=== PATIENT | female | born 1960 | race African-American/Black ===

== ENCOUNTER 2020-01-05 02:13 | Emergency (ER) | payer OTHER, BC ==
[2020-01-05 02:25] VITALS: TEMP 98; BMI 31.6
--- NOTE | 2020-01-05 02:26 | PDOC ---
History of Present Illness - General Chief Complaint: Injury Stated Complaint: BACK PAIN Time Seen by Provider: 01/05/20 02:25 Exam Limitations: Intubated - History of Present Illness Initial Comments: 01/05/20 02:29 HPI 59 y/o F hx of asthma presents to the ED with right sided back pain for 2 weeks. pt was seen at this ED 2 days ago for the same complaint. Pt reports she has felt minimal relief since that discharge. She reports fallin on her right knee after getting out of bed a few hours ago, worsening her right sided back pain. Pain is constant 10/10 pain, radiating down the back of her right leg. pain was triggered 2 weeks ago after lifting heavy object. She denies any bowel/bladder symptoms. loss of sensation, numbness/tingling, fevers, chills, abdominal pain PMHx: as noted above ROS: as noted SHx: Denies Etoh, IVDA, tobacco use Allergies: NKDA ROS: GENERAL/CONSTITUTIONAL: No fever or chills. No weakness. HEAD, EYES, EARS, NOSE AND THROAT: No change in vision. No ear pain or disc harge. No sore throat. CARDIOVASCULAR: No chest pain or shortness of breath RESPIRATORY: No cough, wheezing, or hemoptysis. GASTROINTESTINAL: No nausea, vomiting, diarrhea or constipation. GENITOURINARY: No dysuria, frequency, or change in urination. MUSCULOSKELETAL: No joint or muscle swelling or pain. No neck or back pain. SKIN: No rash NEUROLOGIC: No headache, vertigo, loss of consciousness, or change in strength/sensation. ENDOCRINE: No increased thirst. No abnormal weight change HEMATOLOGIC/LYMPHATIC: No anemia, easy bleeding, or history of blood clots. ALLERGIC/IMMUNOLOGIC: No hives or skin allergy. PE: GENERAL: Awake, alert, and fully oriented, in no acute distress HEAD: No signs of trauma, normocephalic, atraumatic EYES: PERRLA, EOMI, sclera anicteric, conjunctiva clear ENT: Auricles normal inspection, hearing grossly normal, nares patent, oropharynx clear without exudates. Moist mucosa NECK: Normal ROM, supple, no lymphadenopathy, JVD, or masses LUNGS: No distress, speaks full sentences, clear to auscultation bilaterally HEART: Regular rate and rhythm, normal S1 and S2, no murmurs, rubs or gallops, peripheral pulses normal and equal bilaterally. ABDOMEN: Soft, nontender, normoactive bowel sounds. No guarding, no rebound. No masses EXTREMITIES : Normal inspection, Normal range of motion, no edema. No clubbing or cyanosis MSK: no midline tenderness, ttp lower right back and buttocks RECTAL: no saddle anesthesia. normal rectal tone. NEUROLOGICAL: Cranial nerves II through XII grossly intact. Normal speech, no focal sensorimotor deficits SKIN: Warm, Dry, normal turgor, no rashes or lesions noted MDM DDx including but not limited to: sciatica, MSK strain , Workup: lumbar spine ct, toradol IM TX: Past History - Medical History Allergies/Adverse Reactions: Allergies Allergy/AdvReac Type Severity Reaction Status Date / Time No Known Allergies Allergy Verified 01/05/20 02:25 Home Medications: Ambulatory Orders Diazepam [Valium] 5 mg PO Q8H PRN #10 tablet MDD 3 01/05/20 Naproxen 500 mg PO BID PRN #60 tablet MDD 2 01/05/20 Anemia: Yes (Mild, intermittent) COPD: No - Psycho-Social/Smoking History Smoking History: Never smoked Have you smoked in the past 12 months: No Information on smoking cessation initiated: No - Substance Abuse Hx (Audit-C & DAST Scrn) How often the patient has a drink containing alcohol: Never Score: In Men: 4 or > Positive; In Women: 3 or > Positive: 0 Screen Result (Pos requires Nsg. Audit-10AR): Negative In the last yr the pt used illegal drug/Rx for NonMed reason: No Score: Yes response is considered Positive: 0 Screen Result (Positive result requires Nsg. DAST-10): Negative *Physical Exam - Vital Signs Last Vital Signs Temp Pulse Resp BP Pulse Ox 98 F 83 17 142/96 98 01/05/20 02:21 01/05/20 02:21 01/05/20 02:21 01/05/20 02:21 01/05/20 02:21 Discharge - Discharge Information Problems reviewed: Yes Clinical Impression/Diagnosis: Right low back pain Condition: Improved Disposition: HOME - Additional Discharge Information Prescriptions: Naproxen 500 mg PO BID PRN #60 tablet MDD 2 PRN Reason: Pain Diazepam [Valium] 5 mg PO Q8H PRN #10 tablet MDD 3 PRN Reason: Muscle Spasms - Follow up/Referral Referrals: Erin Baldwin [Primary Care Provider] - - Patient Discharge Instructions Patient Printed Discharge Instructions: DI for Low Back Pain Additional Instructions: Please follow up with your Primary Care Doctor within 48-72 hours - call for an appointment. Ambulate as tolerated and no heavy lifting. Take naproxen and valium that have been prescribed to you.do not drive or make any important decisions while on this medication for it can make you drowsy. If you experience any worsening pain, swelling, numbness, weakness please return to ER - Post Discharge Activity Work/Back to School Note: Back to Work
[2020-01-05] MEDS ORDERED: KETOROLAC TROMETHAMINE 15 MG/ML VIAL IM ONE (02:55)
[2020-01-05] MEDS ORDERED: KETOROLAC TROMETHAMINE 15 MG/ML VIAL ONE (03:24)
--- NOTE | 2020-01-05 03:43 | PDOC ---
Attending Attestation - Resident Resident Name: Regulo Malik - ED Attending Attestation I have performed the following: I have examined & evaluated the patient, The case was reviewed & discussed with the resident, I agree w/resident's findings & plan, Exceptions are as noted - HPI HPI: 01/05/20 03:34 51-year-old female history of asthma here today complaining of low back pain. 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 Today she was doing something and suddenly she said she had severe pain radiating down her right leg which caused her to nearly fall denies any bowel or bladder incontinence no fevers no chills no other known trauma no previous back surgery has not had any prior back imaging has been taking Flexeril and Tylenol for her pain states it is not relieved - Physicial Exam PE: 01/05/20 03:43 Awake alert no acute distress lungs are clear bilaterally heart is regular no murmurs rubs or gallops abdomen is soft nontender there is no midline cervical thoracic or lumbar spinal tenderness. She does have paraspinal tenderness in the lumbosacral region on the right neurological testing she has 5 out of 5 in hip flexion extension knee flexion extension dorsiflexion plantarflexion sensation is intact through bilateral bilateral lower extremities - Medical Decision Making 01/05/20 03:44 51-year-old female history of asthma back surgery here today for a second evaluation regarding her back pain. Patient states she has been taking Flexeril with no relief does not tolerate Motrin due to upset stomach on my exam she is neurologically intact his symptoms consistent with sciatica down the right leg will treat with Toradol and Valium p.o. also instructed she should follow-up with her outpatient MRI states she already has a prescription in addition she requests referral for physical therapy from her primary care doctor. We will order imaging with a CT lumbosacral spine today to rule out any other pathology Discharge - Discharge Information Problems reviewed: Yes Clinical Impression/Diagnosis: Right low back pain Condition: Improved Disposition: HOME - Additional Discharge Information Prescriptions: Naproxen 500 mg PO BID PRN #60 tablet MDD 2 PRN Reason: Pain Diazepam [Valium] 5 mg PO Q8H PRN #10 tablet MDD 3 PRN Reason: Muscle Spasms - Follow up/Referral Referrals: Erin Baldwin [Primary Care Provider] - - Patient Discharge Instructions Patient Printed Discharge Instructions: DI for Low Back Pain Additional Instructions: Please follow up with your Primary Care Doctor within 48-72 hours - call for an appointment. Ambulate as tolerated and no heavy lifting. Take naproxen and valium that have been prescribed to you.do not drive or make any important decisions while on this medication for it can make you drowsy. If you experience any worsening pain, swelling, numbness, weakness please return to ER - Post Discharge Activity Work/Back to School Note: Back to Work
[2020-01-05 05:23] VITALS: BP 150/97; PULSE 79
== END 2020-01-05 05:26 | disposition home or self-care (01) ==
LOC: JER 02:13
PROC: 3E0233Z Introduction of Anti-inflammatory into Muscle, Percutaneous Approach (ICD-10-PCS; principal; 2020-01-05)
DX: M54.5 Low back pain (principal)
CPT/HCPCS: 72131-TC; 99284-25

== ENCOUNTER 2020-07-16 08:41 | Inpatient (IN) | payer BC, OTHER ==
[2020-07-16] MEDS ORDERED: EPINEPHrine 1:1,000 0.3 MG/0.3 ML SYR IM ONE (08:43)
[2020-07-16] MEDS ORDERED: EPINEPHrine 1:1,000 1 MG/1 ML - 30ML VIAL (INJECTION) SQ ONE (08:44)
[2020-07-16] MEDS: ALBUTEROL SO4 2.5/IPRATROPIUM 0.5 INH SOL 3 ML VIAL.NEB. NEB SCH ×4 (08:57→09:35)
[2020-07-16 09:38] LABS: BASO % 0.4 % (0-2.0); EOS % 0.7 % (0-4.5); HEMATOCRIT 46.8 % (32.4-45.2); HEMOGLOBIN 14.8 GM/dL (10.7-15.3); LYMPH % 16.3 % (8-40); MCH 26.9 pg (25.7-33.7); MCHC 31.6 g/dl (32.0-36.0); MEAN CELL VOLUME 85.2 fl (80-96); MONO % 6.1 % (3.8-10.2); NEUT % 76.5 % (42.8-82.8); PLATELET COUNT 278 K/MM3 (134-434); RDW 15.1 % (11.6-15.6)
[2020-07-16 09:55] LABS: POTASSIUM 3.5 mmol/L (3.5-5.1)
[2020-07-16 10:00] LABS: ALBUMIN 3.8 g/dl (3.4-5.0)
[2020-07-16 10:01] LABS: CALCIUM 9.2 mg/dL (8.5-10.1)
[2020-07-16 10:02] LABS: MAGNESIUM 2.7 mg/dL (1.8-2.4)
[2020-07-16 10:04] LABS: BILIRUBIN,TOTAL 0.7 mg/dL (0.2-1); CREATININE 0.7 mg/dL (0.55-1.3); TOT PROT 7.5 g/dl (6.4-8.2)
[2020-07-16] MEDS ORDERED: ALBUTEROL SO4 0.083% IH SOL 2.5 MG/3 ML VIAL.NEB. NEB ONE ×3 (10:06→21:11)
[2020-07-16] MEDS ORDERED: ALBUTEROL SO4 0.5 % INH SOLN 2.5 MG/0.5 ML VIAL.NEB. NEB ONE (10:07)
[2020-07-16] MEDS ORDERED: ALBUTEROL SO4 0.083% IH SOL 2.5 MG/3 ML VIAL.NEB. NEB PRN (13:17)
[2020-07-16] MEDS ORDERED: ACETAMINOPHEN 325 MG TABLET (FP) PO PRN (13:17)
[2020-07-16] MEDS ORDERED: AZITHROMYCIN 500 MG TABLET PO SCH (13:30)
[2020-07-16] MEDS ORDERED: AZITHROMYCIN 250 MG TABLET ONE ×2 (13:52→14:00)
[2020-07-16] MEDS ORDERED: CEFTRIAXONE 1 GM/50 ML BAG ONE (13:52)
[2020-07-16] MEDS: CEFTRIAXONE 1 GM in DEXTROSE 5%-WATER - 50 ML IVPB SCH (13:58)
[2020-07-16] MEDS: ALBUTEROL SO4 0.083% IH SOL 2.5 MG/3 ML VIAL.NEB. NEB SCH ×3 (14:21→21:31)
[2020-07-16] MEDS: BUDESONIDE/FORMETEROL FUMARATE 160/4.5 mcg INHALER IH SCH ×2 (14:43→21:31)
[2020-07-16] MEDS ORDERED: methylPREDNISolone NA SUCC 40 MG/1 ML VIAL ONE ×2 (15:42→21:12)
[2020-07-16] MEDS: methylPREDNISolone NA SUCC 40 MG/1 ML VIAL IVPUSH SCH ×2 (16:00→21:31)
[2020-07-16] MEDS: INSULIN SLIDING SCALE (NOVOLOG) 1 VIAL SQ SCH ×2 (18:05→21:31)
[2020-07-16] MEDS ORDERED: MONTELUKAST NA 10 MG TABLET ONE (21:11)
[2020-07-16] MEDS ORDERED: HEPARIN NA (PORCINE) 5,000 UNITS/ML 1ML VIAL ONE (21:11)
[2020-07-16] MEDS: MONTELUKAST NA 10 MG TABLET PO SCH (21:31)
[2020-07-16] MEDS: HEPARIN NA (PORCINE) 5,000 UNITS/ML 1ML VIAL SQ SCH (21:31)
[2020-07-17 00:38] VITALS: BMI 29.4
[2020-07-17] MEDS: methylPREDNISolone NA SUCC 40 MG/1 ML VIAL IVPUSH SCH ×4 (02:52→22:05)
[2020-07-17] MEDS: ALBUTEROL SO4 0.083% IH SOL 2.5 MG/3 ML VIAL.NEB. NEB SCH ×6 (03:03→19:45)
[2020-07-17] MEDS: INSULIN SLIDING SCALE (NOVOLOG) 1 VIAL SQ SCH ×4 (06:32→22:15)
[2020-07-17] MEDS ORDERED: DEXTROSE 5%-WATER - 50 ML IVPB ONE (08:55)
[2020-07-17] MEDS ORDERED: cefTRIAXone SODIUM 1 GM VIAL ONE (08:55)
[2020-07-17] MEDS ORDERED: PT OWN MED DRAWER 7, Y5N ONE (08:56)
[2020-07-17] MEDS: CEFTRIAXONE 1 GM in DEXTROSE 5%-WATER - 50 ML IVPB SCH (09:00)
[2020-07-17 09:07] LABS: BASO % 0.1 % (0-2.0); HEMATOCRIT 41.2 % (32.4-45.2); HEMOGLOBIN 13.4 GM/dL (10.7-15.3); LYMPH % 6.8 % (8-40); MCH 27.4 pg (25.7-33.7); MCHC 32.5 g/dl (32.0-36.0); MEAN CELL VOLUME 84.5 fl (80-96); MONO % 2.5 % (3.8-10.2); NEUT % 90.6 % (42.8-82.8); PLATELET COUNT 251 K/MM3 (134-434); RBC 4.88 M/mm3 (3.60-5.2); RDW 15.2 % (11.6-15.6); WHITE BLOOD COUNT 11.3 K/mm3 (4.0-10.0)
[2020-07-17] MEDS: HEPARIN NA (PORCINE) 5,000 UNITS/ML 1ML VIAL SQ SCH ×2 (09:08→22:05)
[2020-07-17] MEDS: AZITHROMYCIN 250 MG TABLET PO SCH (09:11)
[2020-07-17] MEDS: BUDESONIDE/FORMETEROL FUMARATE 160/4.5 mcg INHALER IH SCH ×2 (09:12→22:14)
[2020-07-17 09:51] LABS: POTASSIUM 4.2 mmol/L (3.5-5.1)
[2020-07-17 10:03] LABS: CALCIUM 9.5 mg/dL (8.5-10.1)
[2020-07-17 10:04] LABS: ALBUMIN 3.5 g/dl (3.4-5.0); BLOOD UREA NITROGEN 11.7 mg/dL (7-18)
[2020-07-17 10:07] LABS: CREATININE 0.6 mg/dL (0.55-1.3)
[2020-07-17 10:08] LABS: BILIRUBIN,TOTAL 0.7 mg/dL (0.2-1)
[2020-07-17] MEDS ORDERED: INSULIN (NOVOLOG) ASPART 100 UNITS/ML 10ML VIAL ONE (10:48)
[2020-07-17] MEDS: MONTELUKAST NA 10 MG TABLET PO SCH (22:05)
[2020-07-18] MEDS: ALBUTEROL SO4 0.083% IH SOL 2.5 MG/3 ML VIAL.NEB. NEB SCH ×6 (00:11→20:45)
[2020-07-18] MEDS: methylPREDNISolone NA SUCC 40 MG/1 ML VIAL IVPUSH SCH ×4 (04:17→17:08)
[2020-07-18] MEDS: INSULIN SLIDING SCALE (NOVOLOG) 1 VIAL SQ SCH ×4 (07:04→21:18)
[2020-07-18] MEDS ORDERED: DEXTROSE 5%-WATER - 50 ML IVPB ONE (09:15)
[2020-07-18] MEDS ORDERED: cefTRIAXone SODIUM 1 GM VIAL ONE (09:15)
[2020-07-18] MEDS ORDERED: PT OWN MED DRAWER 7, Y5N ONE (09:15)
[2020-07-18] MEDS: CEFTRIAXONE 1 GM in DEXTROSE 5%-WATER - 50 ML IVPB SCH (09:21)
[2020-07-18] MEDS: HEPARIN NA (PORCINE) 5,000 UNITS/ML 1ML VIAL SQ SCH ×2 (09:22→21:19)
[2020-07-18] MEDS: BUDESONIDE/FORMETEROL FUMARATE 160/4.5 mcg INHALER IH SCH ×2 (09:23→21:20)
[2020-07-18] MEDS: AZITHROMYCIN 250 MG TABLET PO SCH (09:24)
[2020-07-18] MEDS ORDERED: INSULIN (NOVOLOG) ASPART 100 UNITS/ML 10ML VIAL ONE ×2 (11:07→16:12)
[2020-07-18] MEDS: MONTELUKAST NA 10 MG TABLET PO SCH (21:18)
[2020-07-19] MEDS: ALBUTEROL SO4 0.083% IH SOL 2.5 MG/3 ML VIAL.NEB. NEB SCH ×4 (00:20→11:29)
[2020-07-19 06:50] VITALS: BP 123/52; PULSE 62; TEMP 97.7
[2020-07-19] MEDS: INSULIN SLIDING SCALE (NOVOLOG) 1 VIAL SQ SCH ×2 (07:08→11:41)
[2020-07-19] MEDS ORDERED: DEXTROSE 5%-WATER - 50 ML IVPB ONE (08:53)
[2020-07-19] MEDS ORDERED: cefTRIAXone SODIUM 1 GM VIAL ONE (08:53)
[2020-07-19] MEDS: BUDESONIDE/FORMETEROL FUMARATE 160/4.5 mcg INHALER IH SCH (09:18)
[2020-07-19] MEDS: CEFTRIAXONE 1 GM in DEXTROSE 5%-WATER - 50 ML IVPB SCH (09:18)
[2020-07-19] MEDS: HEPARIN NA (PORCINE) 5,000 UNITS/ML 1ML VIAL SQ SCH (09:18)
[2020-07-19] MEDS ORDERED: predniSONE 20 MG TABLET (UD) PO SCH (10:00)
== END 2020-07-19 16:31 | disposition home or self-care (01) | DRG 202 ==
LOC: JER 08:41 → JERBED 10:09 → J6S 23:32
PROVIDERS: ADMIT Internal Medicine; ATTEND Internal Medicine
DX: J45.51 Severe persistent asthma with (acute) exacerbation (principal); J18.9 Pneumonia, unspecified organism
CPT/HCPCS: 36415; 71045-TC-FY; 71250-TC; 80053; 82962; 83735; 85025; 87804; 93005; 93010; 94640; 99285-25; C9803; J1644; U0003